=== PATIENT | male | born 1990 | race Caucasian/White ===

== ENCOUNTER 2021-10-18 14:13 | Emergency (ER) | payer OTHER ==
[~2021-10-18] VITALS: Ht 175.3 cm; Wt 80.0 kg
[2021-10-18 14:16] VITALS: BP 139/91
[2021-10-18] MEDS ORDERED: LIDOCAINE HCL/PF 1% 10 MG/ML 5ML VIAL INFIL ONE (14:30)
[2021-10-18] MEDS ORDERED: TETANUS, DIPHTHERIA, PERTUSSIS VAC/PF 0.5ML (>10YR OLD) IM ONE (14:30)
[2021-10-18] MEDS ORDERED: BACITRACIN ZINC OINT UDPKT TOP ONE (14:30)
[2021-10-18] MEDS ORDERED: HYDROCODONE/ACETAMINOPHEN 5/325MG TABLET PO ONE (14:30)
[2021-10-18] MEDS ORDERED: LIDOCAINE HCL 1% 10 MG/ML 10ML VIAL INJ NR (15:00)
[2021-10-18] MEDS ORDERED: BO1 TP (17:48)
== END 2021-10-18 18:05 | disposition home or self-care (01) ==
LOC: ER 14:13
DX: S61.412A Laceration without foreign body of left hand, initial encounter (principal); S60.411A Abrasion of left index finger, initial encounter; W29.8XXA Contact with other powered hand tools and household machinery, initial encounter; Y93.89 Activity, other specified; Y92.89 Other specified places as the place of occurrence of the external cause
CPT/HCPCS: 12002; 73130; 90471; 90715; 99283; J3490

== ENCOUNTER 2021-10-22 12:23 | Emergency (ER) | payer OTHER ==
[~2021-10-22] VITALS: Ht 175.3 cm; Wt 82.0 kg
[~2021-10-22 12:23] MED LIST: BO1 TP
[2021-10-22 12:40] VITALS: BP 135/78
== END 2021-10-22 13:54 | disposition home or self-care (01) ==
LOC: ER 12:23
DX: S61.412D Laceration without foreign body of left hand, subsequent encounter (principal); Z48.00 Encounter for change or removal of nonsurgical wound dressing; X58.XXXD Exposure to other specified factors, subsequent encounter
CPT/HCPCS: 99281